=== PATIENT | female | born 2000 | race Hispanic/Latino ===

== ENCOUNTER 2020-11-26 03:04 | Emergency (ER) | payer OTHER, SELFPAY | END 2020-11-26 03:43 | disposition home or self-care (01) | LOC: CSHERS 03:04 | DX: S50.12XA Contusion of left forearm, initial encounter (principal); F10.129 Alcohol abuse with intoxication, unspecified; V43.52XA Car driver injured in collision with other type car in traffic accident, initial encounter | CPT/HCPCS: 99284 ==